=== PATIENT | male | born 1965 | race Two or more races ===

== ENCOUNTER 2024-11-22 15:25 | Emergency (ER) | payer OTHER, MEDICAID ==
[~2024-11-22] VITALS: Ht 167.6 cm; Wt 123.0 kg
[~2024-11-22 15:25] MED LIST: AMLO1TAB23 PO; ASPI-543 PO; ATOR40TA52 PO; CHOL200029 PO; CHOL20007 PO; FURO40TA4 PO; INSUINJ49 SC; METO-158 PO; MIN25T GT
[2024-11-22 15:39] VITALS: TEMP 97.7
[2024-11-22 16:00] VITALS: PULSE 61; RESP 16; O2SAT 95
--- NOTE | 2024-11-22 16:26 | DVH ---
CHEST RADIOGRAPH Indication: near syncope Technique: Single frontal view of the chest was obtained COMPARISON: None FINDINGS: Lines and Tubes: None Lungs: Increased interstitial prominence Pleura: No effusion. No pneumothorax. Cardiomediastinal contours: Cardiomegaly Bones: Unremarkable IMPRESSION: Mild congestion
[2024-11-22 16:29] LABS: Chloride 100 mmol/L (98-107); Potassium 4.2 mmol/L (3.5-5.1); Sodium 138 mmol/L (136-145)
[2024-11-22 16:30] LABS: Anion Gap 10 (5-15); Calcium 9.9 mg/dL (8.7-10.4); Carbon Dioxide 28 mmol/L (20-31)
[2024-11-22 16:35] LABS: BUN/Creatinine Ratio 4.6 (10.0-20.0)
[2024-11-22 16:38] LABS: Blood Urea Nitrogen 35 mg/dL (9-23); Glucose 136 mg/dL (74-106)
[2024-11-22 16:44] LABS: Basophils # (auto) 0 10 ^3/uL (0-0.2); Basophils % (auto) 0.3 % (0.0-2.0); Eosinophils # (auto) 0.2 10 ^3/uL (0-0.8); Eosinophils % (auto) 2.6 % (0.0-7.0); Hematocrit 33.7 % (41.0-53.0); Hemoglobin 11.1 g/dL (13.5-17.5); Lymphocytes # (auto) 1.7 10 ^3/uL (0.4-5.4); Lymphocytes % (auto) 26.7 % (10.0-50.0); Mean Corpuscular Hemoglobin 33.2 pg (28.0-32.0); Mean Corpuscular Hgb Conc. 33.1 g/dL (32.0-36.0); Mean Corpuscular Volume 100.2 fL (80.0-100.0); Monocytes # (auto) 0.8 10 ^3/uL (0-1.3); Monocytes % (auto) 12.5 % (0.0-12.0); Neutrophils # (auto) 3.6 10 ^3/uL (1.6-8.6); Neutrophils % (auto) 57.9 % (37.0-80.0); Nucleated Red Blood Cells % 0.1 %; Platelet Count (auto) 223 10^3/uL (140-450); Red Blood Cells 3.36 10^6/uL (4.5-5.90); Red Cell Distribution Width 18.2 % (11.8-14.3); White Blood Cell 6.2 10^3/uL (4.4-10.8)
--- NOTE | 2024-11-22 17:59 | ED.PDOC ---
HPI (NEURO) HPI Comments 59y M who presents to the ED via EMS for chief complaint of hypotension. Pt states he gets dialysis on , , and fri and states he recently got dialysis done today after a few missed dialysis treatments due to the holiday season and states after his dialysis treatment, he started to have weakness at home and drank a soda and called EMS to the scene. EMS arrived on scene and states pt vitals were checked and noted BP of 85/39 and pt was brought to the ED. Pt now in the ED, otherwise denies chest pain, shortness of breath, dizziness, headache, fever, cough or chills. Pt otherwise denies any other symptoms at this time. Pt is alert and oriented and able to answer all questions. Chief Complaint: Low Blood Pressure Time Seen by MD: 17:54 Primary Care Provider: ROME Montanez Notes: Vocational Nurse Notes Information Source: Patient Mode of Arrival: EMS Brought in by: EMS Past Medical History PAST MEDICAL HISTORY: CKF, DM, ESRD, Gallstones, High Lipids, HTN Family History Family History: Unobtainable Social History Smoker: Non-Smoker Alcohol: Denies ETOH Use Drugs: Denies Drug Use Lives In: Home Constitutional: reports: malaise, weakness; denies: chills, diaphoresis, fatigue, fever, sweats, others EENTM: denies: blurred vision, double vision, ear bleeding, ear discharge, ear drainage, ear pain, ear ringing, eye pain, eye redness, hearing loss, mouth pain, mouth swelling, nasal discharge, nose bleeding, nose congestion, nose pain, photophobia, tearing, throat pain, throat swelling, voice changes, others Respiratory: denies: cough, hemoptysis, orthopnea, SOB at rest, shortness of breath, SOB with excertion, stridor, wheezing, others Cardiovascular: denies: chest pain, dizzy spells, diaphoresis, Dyspnea on exertion, edema, irregular heart beat, left arm pain, lightheadedness, palpitations, PND, syncope, others Gastrointestinal: denies: abdomen distended, abdominal pain, blood streaked bowels, constipated, diarrhea, dysphagia, difficulty swallowing, hematemesis, melena, nausea, poor appetite, poor fluid intake, rectal bleeding, rectal pain, vomiting, others Genitourinary: denies: burning, dysuria, flank pain, frequency, hematuria, incontinence, penile discharge, penile sore, pain, testicle pain, testicle swelling, urgency, others Neurological: denies: dizziness, fainting, headache, left sided numbness, left sided weakness, numbness, paresthesia, pre-existing deficit, right sided numbness, right sided weakness, seizure, speech problems, tingling, tremors, weakness, others Musculoskeletal: denies: back pain, gout, joint pain, joint swelling, muscle pain, muscle stiffness, neck pain, others Integumetry: denies: bruises, change in color, change in hair/nails, dryness, laceration, lesions, lumps, rash, wounds, others Allergic/Immunocompromised: denies: Difficulty Healing, Frequent Infections, Hives, Itching, others Hematologic/Lymphatic: denies: anemia, blood clots, easy bleeding, easy bruising, swollen glands, others Endocrine: denies: excessive hunger, excessive sweating, excessive thirst, excessive urination, flushing, intolerance to cold, intolerance to heat, unexplained weight gain, unexplained weight loss, others Psychiatric: denies: anxiety, bipolar disorder, depression, hopeless, panic disorder, schizophrenia, sleepless, suicidal, others All Other Systems: Reviewed and Negative Physical Exam General Appearance: No Apparent Distress, Normal HEENT: Normal ENT Inspection, Pharynx Normal, TMs Normal Neck: Full Range of Motion, Non-Tender, Normal, Normal Inspection Respiratory: Chest Non-Tender, Lungs Clear, No Accessory Muscle Use, No Respiratory Distress, Normal Breath Sounds Cardiovascular: No Edema, No JVD, No Murmur, No Gallop, Normal Peripheral Pulses, Regular Rate/Rhythm Breast Exam: Deferred Gastrointestinal: No Organomegaly, Non Tender, No Pulsatile Mass, Normal Bowel Sounds, Soft Genitalia: Deferred Pelvic: Deferred Rectal: Deferred Extremities: No calf tenderness, Normal capillary refill, Normal inspection, Normal range of motion, Non-tender, No pedal edema Musculoskeletal : Apperance: Normal Neurologic: Alert, trust accounts supervisor II-XII nml as Tested, No Motor Deficits, Normal Affect, Normal Mood, No Sensory Deficits Cerebellar Function: Normal Reflexes: Normal Skin: Dry, Normal Color, Warm Lymphatic: No Adenopathy Was a procedure done? Was a procedure done?: No Differential Diagnosis (SZ) General Weakness: Anemia, Dehydration, Electrolyte imbalance, Encephalopathy, Hypotension, Vertigo: central, Vertigo: peripheral, Other (sepsis, CHF exacerbation) X-Ray, Labs, Meds, VS Vital Signs Date Time Temp Pulse Resp B/P (MAP) Pulse Ox O2 Delivery O2 Flow Rate FiO2 11/22/24 20:00 84 22 135/73 (93) 100 11/22/24 19:00 61 13 137/66 (89) 94 11/22/24 18:20 59 11/22/24 18:00 59 16 137/66 (89) 94 11/22/24 16:00 61 14 121/55 (77) 95 11/22/24 16:00 61 16 95 Room Air* 0 21 11/22/24 15:40 89/48 (62) 11/22/24 15:39 97.7 61 16 85/39 (54) 98 97.7 11/22/24 15:33 61 11/22/24 15:25 97.7 61 16 89/48 (62) 98 Lab Test 11/22/24 17:43 11/22/24 15:59 Range/Units Troponin I High Sensitivity 37 41 </=54 ng/L White Blood Count 6.2 4.4-10.8 10^3/uL Red Blood Count 3.36 L 4.5-5.90 10^6/uL Hemoglobin 11.1 L 13.5-17.5 g/dL Hematocrit 33.7 L 41.0-53.0 % Mean Corpuscular Volume 100.2 H 80.0-100.0 fL Mean Corpuscular Hemoglobin 33.2 H 28.0-32.0 pg Mean Corpuscular Hemoglobin Concent 33.1 32.0-36.0 g/dL Red Cell Distribution Width 18.2 H 11.8-14.3 % Platelet Count 223 140-450 10^3/uL Mean Platelet Volume 8.4 6.9-10.8 fL Neutrophils (%) (Auto) 57.9 37.0-80.0 % Lymphocytes (%) (Auto) 26.7 10.0-50.0 % Monocytes (%) (Auto) 12.5 H 0.0-12.0 % Eosinophils (%) (Auto) 2.6 0.0-7.0 % Basophils (%) (Auto) 0.3 0.0-2.0 % Neutrophils # (Auto) 3.6 1.6-8.6 10 ^3/uL Lymphocytes # (Auto) 1.7 0.4-5.4 10 ^3/uL Monocytes # (Auto) 0.8 0-1.3 10 ^3/uL Eosinophils # (Auto) 0.2 0-0.8 10 ^3/uL Basophils # (Auto) 0 0-0.2 10 ^3/uL Nucleated Red Blood Cells 0.1 % Sodium Level 138 136-145 mmol/L Potassium Level 4.2 3.5-5.1 mmol/L Chloride Level 100 98-107 mmol/L Carbon Dioxide Level 28 20-31 mmol/L Anion Gap 10 5-15 Blood Urea Nitrogen 35 H 9-23 mg/dL Creatinine 7.67 H 0.700-1.30 mg/dL Glomerular Filtration Rate Calc 8 >90 mL/min BUN/Creatinine Ratio 4.6 L 10.0-20.0 Serum Glucose 136 H 74-106 mg/dL Calcium Level 9.9 8.7-10.4 mg/dL B-Type Natriuretic Peptide 792.43 0-100 pg/mL [place] [id number] Ph: [phone] DIAGNOSTIC IMAGING Diagnostic Imaging Report : [id number] Signed PATIENT: FREDIS DUKE ACCT: [id number] UNIT: [id number] : 1965 LOC: ER ROOM / BED: / AGE / SEX: 59 / M ADM STATUS: REG ER SERVICE 36 ORDERING PHYSICIAN: ÁNGEL RINCON MD PROCEDURE(s): CXRP - CHEST PORTABLE REASON: near syncope ORDER NUMBER(s): [id number], ACCESSION NUMBER(s): [id number] CHEST RADIOGRAPH Indication: near syncope Technique: Single frontal view of the chest was obtained COMPARISON: None FINDINGS: Lines and Tubes: None Lungs: Increased interstitial prominence Pleura: No effusion. No pneumothorax. Cardiomediastinal contours: Cardiomegaly Bones: Unremarkable IMPRESSION: Mild congestion ATED BY: FABIAN DINH MD DICTATED DATE/TIME: 11/22/24 1622 SIGNED BY: FABIAN DINH MD SIGNED DATE/TIME: 11/22/24 1622 CC: Time of 1ST Reevaluation: 18:30 Reevaluation 1ST: Unchanged Patient Education/Counseling: Diagnosis, Treatment Family Education/Counseling: No Family Present Additional Information - I reviewed the following notes from patient's past medical encounters: - The following tests were ordered, and results were reviewed by me: (Labs, X- Ray, EKG): EKG x3, troponin x 3, chest x-ray, CBC, BMP, BNP, - Additional information was gathered from interviewing the following independent Historian: (Family, Other Providers, EMT): EMS - I reviewed and agreed with the following test results read by other provider: (X-ray, CT, US): radiologist - I discussed treatments and results with medical personnel and: (consultants, family): none Departure 1 Departure Time of Disposition: 20:30 (Patient presented with near syncope today and should be admitted. Data: 1. I ordered and reviewed the result of at least 3 l abs including a CBC, BMP, and troponin. 2. I independently interpreted the following tests: EKG which shows a sinus arrhythmia and a chest x-ray which shows vascular congestion.Risk:This patient has a high risk of morbidity due to further diagnostic testing or treatment and may suffer from an acute cardiac, neurologic, or infectious disorder. Rationale: Patient should be admitted to the hospital for further management.) Impression: Primary Impression: Near syncope Additional Impression: Generalized weakness Disposition: 09 ADMITTED INPATIENT Admit to: Med Surg Condition: Serious Critical Care Note Critical Care Time?: No Stability Stability form required: No Heart Score Heart Score: Heart Score Response (Comments) Value History Slightly Suspicious 0 EKG Repolarization Disturb 1 Age 45-64 1 Risk Factors >3 or Hx ASHD 2 Troponin 1-2 x's Normal limit 1 Total 5 I personally scribed for ÁNGEL RINCON MD ([email or web address]) on 11/22/24 at 17:59. Electronically submitted by Rita Pope ([email or web address]). ÁNGEL RINCON MD Nov 22, 2024 17:59
--- NOTE | 2024-11-22 18:19 | ECG ---
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
[2024-11-22 19:45] VITALS: PULSE 61; RESP 13; O2SAT 94
[2024-11-22 20:00] VITALS: BP 160/45; PULSE 63; RESP 16; O2SAT 99
== END 2024-11-22 20:45 | disposition home or self-care (01) ==
LOC: EDBD 15:25 → EDUNIT# 15:25 → ER 15:25
DX: R55 Syncope and collapse (principal); R53.1 Weakness; I95.9 Hypotension, unspecified; E11.22 Type 2 diabetes mellitus with diabetic chronic kidney disease; I12.0 Hypertensive chronic kidney disease with stage 5 chronic kidney disease or end stage renal disease; N18.6 End stage renal disease
CPT/HCPCS: 36415; 71045; 80048; 83880; 84484; 85025; 93005

== ENCOUNTER 2025-04-09 05:15 | Inpatient (IN) | payer OTHER, MEDICAID ==
[2025-04-09] VITALS (14 sets, daily range): BP systolic 115–161; BP diastolic 37–46; PULSE 60–109; RESP 17–22; TEMP 97.9–98.6; O2SAT 94–99
[~2025-04-09] VITALS: Ht 172.7 cm; Wt 129.0 kg
[2025-04-09] MEDS: NITROGLYCERIN 2% OINT 1GM PKG TD ONE (05:30)
--- NOTE | 2025-04-09 05:30 | ED.PDOC ---
History of Present Illness HPI Comments 59-year-old male came to ER via EMS for shortness of breath. Patient is morbidly obese, does have history of hypertension, diabetes, congestive heart failure, end-stage renal disease, on dialysis every Friday and Friday. Patient missed his dialysis session last . Patient coming in today with shortness of breath that started few hours ago progressively worsening. Complaining also of bilateral flank pains and constipation, last bowel movement was 3 days ago. Denies any acute chest pains. Patient was saturating 80% on room air on on scene. Patient was placed on CPAP and brought to the ER for further evaluation. Chief Complaint: Shortness a breath Time Seen by MD: 05:30 Primary Care Provider: ROME Montanez Notes: Trestle Builder Notes Allergies: Coded Allergies: NO KNOWN ALLERGIES (Unverified , 09/03/10) Home Meds Reported Medications Cholecalciferol (VITAMIN D3) 2,000 Unit Tab, 1 TAB PO DAILY, #30 TAB 5 Refills 09/26/15 Atorvastatin Calcium (ATORVASTATIN CALCIUM) 40 Mg Tab, 1 TAB PO DAILY, #90 TAB 1 Refill 09/26/15 Aspirin (Aspir-Low) 81 Mg Tab, 81 MG PO DAILY for 30 Days, MG 09/26/15 Furosemide (Furosemide) 40 Mg Tab, 40 MG PO DAILY for 30 Days 09/26/15 Minoxidil (Loniten) 2.5 Mg Tb, 10 MG GT BID 09/26/15 Metoprolol Tartrate (Metoprolol Tartrate) 50 Mg Tab, 50 MG PO BID for 30 Days, MG 09/26/15 Cholecalciferol (VITAMIN D3) 2,000 Unit Chw, 2000 UNIT PO, CHW 09/25/15 Amlodipine Besylate (Amlodipine Besylate) 10 Mg Tab, 1 TAB PO DAILY, #30 TAB 5 Refills 09/25/15 Insulin Isophane & Reg (Human) (NOVOLIN 70/30 RELION) Relion Inj, 1 SC, INJ 09/25/15 Information Source: Emergency Med Personnel Mode of Arrival: EMS Severity: Moderate Timing: Hours Duration: Since onset Prehospital treatment: C-Pap, Oxygen Past Medical History PAST MEDICAL HISTORY: CHF, DM, ESRD, Gallstones, High Lipids, HTN Surgical History (Other): Dialysis every Friday Family History Family History: Reviewed,noncontributory to illness Social History Smoker: Non-Smoker Alcohol: Denies ETOH Use Drugs: Denies Drug Use Lives In: Home Constitutional: denies: chills, diaphoresis, fatigue, fever, malaise, sweats, weakness, others EENTM: denies: blurred vision, double vision, ear bleeding, ear discharge, ear drainage, ear pain, ear ringing, eye pain, eye redness, hearing loss, mouth pain, mouth swelling, nasal discharge, nose bleeding, nose congestion, nose pain, photophobia, tearing, throat pain, throat swelling, voice changes, others Respiratory: reports: SOB at rest, shortness of breath; denies: cough, hemoptysis, orthopnea, SOB with excertion, stridor, wheezing, others Cardiovascular: reports: chest pain, edema; denies: dizzy spells, diaphoresis, Dyspnea on exertion, irregular heart beat, left arm pain, lightheadedness, palpitations, PND, syncope, others Gastrointestinal: denies: abdomen distended, abdominal pain, blood streaked bowels, constipated, diarrhea, dysphagia, difficulty swallowing, hematemesis, melena, nausea, poor appetite, poor fluid intake, rectal bleeding, rectal pain, vomiting, others Genitourinary: denies: burning, dysuria, flank pain, frequency, hematuria, incontinence, penile discharge, penile sore, pain, testicle pain, testicle swelling, urgency, others Neurological: denies: dizziness, fainting, headache, left sided numbness, left sided weakness, numbness, paresthesia, pre-existing deficit, right sided numbness, right sided weakness, seizure, speech problems, tingling, tremors, weakness, others Musculoskeletal: denies: back pain, gout, joint pain, joint swelling, muscle pain, muscle stiffness, neck pain, others Integumetry: denies: bruises, change in color, change in hair/nails, dryness, laceration, lesions, lumps, rash, wounds, others Allergic/Immunocompromised: denies: Difficulty Healing, Frequent Infections, Hives, Itching, others Hematologic/Lymphatic: denies: anemia, blood clots, easy bleeding, easy bruising, swollen glands, others Endocrine: denies: excessive hunger, excessive sweating, excessive thirst, excessive urination, flushing, intolerance to cold, intolerance to heat, unexplained weight gain, unexplained weight loss, others Psychiatric: denies: anxiety, bipolar disorder, depression, hopeless, panic disorder, schizophrenia, sleepless, suicidal, others Physical Exam General Appearance: No Apparent Distress, Normal HEENT: Normal ENT Inspection, Pharynx Normal, TMs Normal Neck: Full Range of Motion, Non-Tender, Normal, Normal Inspection Respiratory: Chest Non-Tender, Lungs Clear, No Accessory Muscle Use, No Respiratory Distress, Normal Breath Sounds Cardiovascular: No Edema, No JVD, No Murmur, No Gallop, Normal Peripheral Pulses, Regular Rate/Rhythm Breast Exam: Deferred Gastrointestinal: No Organomegaly, Non Tender, No Pulsatile Mass, Normal Bowel Sounds, Soft Genitalia: Deferred Pelvic: Deferred Rectal: Deferred Extremities: No calf tenderness, Normal capillary refill, Normal inspection, Normal range of motion, Non-tender, No pedal edema Musculoskeletal : Apperance: Normal Neurologic: Alert, event promoter II-XII nml as Tested, No Motor Deficits, Normal Affect, Normal Mood, No Sensory Deficits Cerebellar Function: Normal Reflexes: Normal Skin: Dry, Normal Color, Warm Lymphatic: No Adenopathy Was a procedure done? Was a procedure done?: No Differential Dx Considerations may include: Anemia, electrolyte imbalance, hypertension, congestive heart failure, end-stage renal disease, pneumonia, UTI, constipation X-Ray, Labs, Meds, VS Vital Signs Date Time Temp Pulse Resp B/P (MAP) Pulse Ox O2 Delivery O2 Flow Rate FiO2 04/09/25 05:19 72 Time of 1ST Reevaluation: 05:24 Reevaluation 1ST: Unchanged Patient Education/Counseling: Diagnosis, Treatment Family Education/Counseling: No Family Present Departure 1 Departure Time of Disposition: 07:00 Impression: Primary Impression: Respiratory failure with hypoxia Additional Impressions: ESRD on dialysis Fluid overload Disposition: ADMITTED INPATIENT Admit to: Tele Condition: Guarded Discharged With: Self Critical Care Note Critical Care Time?: Yes (35 min-critical care time only) Critical care comment: Shortness a breath Stability Stability form required: No Heart Score Heart Score: Heart Score Response (Comments) Value History Moderate Suspicious 1 EKG Repolarization Disturb 1 Age 45-64 1 Risk Factors >3 or Hx ASHD 2 Troponin Normal limit 0 Total 5 I personally scribed for ARIELLE DÍAZ MD ([email or web address]) on 04/09/25 at 05:30. Electronically submitted by Kalin Ribera ([email or web address]). ARIELLE DÍAZ MD April 09, 2025 05:30
--- NOTE | 2025-04-09 06:10 | ECG ---
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
[2025-04-09 06:21] LABS: Basophils # (auto) 0.1 10 ^3/uL (0-0.2); Basophils % (auto) 0.6 % (0.0-2.0); Eosinophils # (auto) 0.1 10 ^3/uL (0-0.8); Eosinophils % (auto) 1.2 % (0.0-7.0); Hematocrit 32.9 % (41.0-53.0); Hemoglobin 11.3 g/dL (13.5-17.5); Lymphocytes % (auto) 21.3 % (10.0-50.0); Mean Corpuscular Hemoglobin 33.6 pg (28.0-32.0); Mean Corpuscular Hgb Conc. 34.3 g/dL (32.0-36.0); Mean Corpuscular Volume 97.8 fL (80.0-100.0); Monocytes # (auto) 0.6 10 ^3/uL (0-1.3); Monocytes % (auto) 6.7 % (0.0-12.0); Neutrophils # (auto) 6.5 10 ^3/uL (1.6-8.6); Neutrophils % (auto) 70.2 % (37.0-80.0); Nucleated Red Blood Cells % 0.1 %; Platelet Count (auto) 165 10^3/uL (140-450); Red Blood Cells 3.36 10^6/uL (4.5-5.90); Red Cell Distribution Width 16.1 % (11.8-14.3); White Blood Cell 9.3 10^3/uL (4.4-10.8)
--- NOTE | 2025-04-09 06:21 | DVH ---
CHEST RADIOGRAPH Indication: SOB Technique: Single frontal view of the chest was obtained COMPARISON: XY CHEST PORTABLE on DOS: 11/22/24 FINDINGS: Lines and Tubes: None Lungs: Multifocal right lung airspace disease Pleura: No effusion. No pneumothorax. Cardiomediastinal contours: Cardiomegaly Bones: Unremarkable IMPRESSION: Multifocal right lung airspace disease
[2025-04-09 06:29] LABS: INR 1.01 (0.9-1.15); Prothrombin Time 10.7 sec (9.3-11.8)
[2025-04-09 06:38] LABS: Alanine Aminotransferase 10 U/L (7-40); Albumin 4.3 g/dL (3.2-4.8); Anion Gap 14 (5-15); Aspartate Aminotransferase 15 U/L (13-40); BUN/Creatinine Ratio 5.6 (10.0-20.0); Calcium 8.8 mg/dL (8.7-10.4); Total Protein 8.2 g/dL (5.7-8.2)
[2025-04-09 06:39] LABS: Bilirubin, Total 0.4 mg/dL (0.2-1.0)
[2025-04-09 06:58] LABS: Base Excess -5.1 mmol/L (-2.0-3.0)
[2025-04-09 07:06] LABS: Alkaline Phosphatase 215 U/L (46-116); Blood Urea Nitrogen 66 mg/dL (9-23); Chloride 97 mmol/L (98-107); Potassium 6.9 mmol/L (3.5-5.1); Sodium 134 mmol/L (136-145)
[2025-04-09 07:21] LABS: Carbon Dioxide 23 mmol/L (20-31); Glucose 175 mg/dL (74-106)
[2025-04-09] MEDS ORDERED: HYDR50TA47 PO (08:07)
[2025-04-09] MEDS ORDERED: APIX5TAB PO (08:07)
[2025-04-09] MEDS ORDERED: CALC667C PO (08:07)
[2025-04-09] MEDS ORDERED: SACU1TAB7 PO (08:07)
[2025-04-09] MEDS ORDERED: GAB100C PO (08:07)
[2025-04-09] MEDS ORDERED: CARV12.544 PO (08:07)
[2025-04-09] MEDS ORDERED: ISOS10TA2 PO (08:07)
--- NOTE | 2025-04-09 08:14 | DVHHP2 ---
History of Present Illness Reason for Visit: SOB History of Present Illness Crispin Son is a 59-year-old male with past medical history of hypertension, hyperlipidemia, diabetes type 2, CHF, ESRD on HD (//), right eye blindness, left upper arm fistula with a history of clot, cholelithiasis, right BKA, and left toe amputation who presents to the ED with SOB since 11:00 a.m. yesterday. Patient reports that he missed his dialysis on because they were paving the asphalt and they were unable to leave their home. Patient reports that he was trying to go today but he was extremely short of breath which is why he is here today. Patient's Bettina is at the bedside along with his daughter. Patient states that the shortness of breath came about when he was just sitting. Patient also endorses that his abdomen has been bloated and he has not had a bowel movement in 3 days except for today he had watery small amount. Patient denies any chest pain, fever, chills, recent trauma or injury, recent sick contacts, recent ingestion of spoiled food, lightheadedness, weakness, dizziness, wheezing, abdominal pain, nausea, vomiting, or diarrhea. He states that he has a prosthetic leg and uses a front wheel walker along with a wheelchair to get around. Patient also states that he does not use home oxygen however upon examination areli stoner is currently on 4 L nasal cannula was initially on BiPAP however Respiratory was able to wean him down to nasal cannula. Cardiovascular: CHF, HTN, hyperipidemia Renal/: Chronic renal failure Endocrine: Diabetes Past Medical History Right eye blindness Cholelithiasis Left upper arm fistula with history of clot Past Surgical History: Other (Right BKA and left toe amputation) Family History: DM, Other (Dad with ESRD on HD, diabetes, right eye blindness, deafness, and right leg amputation) Smoke: No ALCOHOL: none Lives: with Family Domestic Violence: Neg Review of Systems Respiratory: Shortness of breath Gastrointestinal: Other (Bloating) Allergies: Coded Allergies: NO KNOWN ALLERGIES (Unverified , 09/03/10) Medications Current Medications Medications Dose Ordered Sig/Neto Route Start Time Stop Time Status Last Admin Dose Admin Ondansetron HCl 4 mg Q4HP PRN IV 04/09/25 08:15 UNV Acetaminophen 650 mg Q6HP PRN PO 04/09/25 08:15 UNV Nitroglycerin 0.4 mg Q5MINP PRN SL 04/09/25 08:15 UNV Morphine Sulfate 2 mg Q30M PRN IV 04/09/25 08:15 UNV Aspirin 81 mg DAILY PO 04/09/25 10:00 UNV Furosemide 40 mg DAILY PO 04/09/25 10:00 UNV Metoprolol Tartrate 50 mg BID PO 04/09/25 10:00 UNV Minoxidil 10 mg BID GT 04/09/25 10:00 UNV Patient Own Medication 1 tab DAILY PO 04/09/25 10:00 UNV Patient Own Medication 1 tab DAILY PO 04/09/25 10:00 UNV Patient Own Medication 1 tab DAILY PO 04/09/25 10:00 UNV Albuterol 2.5 mg Q4HWA NEB 04/09/25 10:00 UNV Ipratropium [place] 0.5 mg Q4HWA NEB 04/09/25 10:00 UNV Polyethylene Glycol 17 gm DAILY PO 04/09/25 10:00 UNV Sennosides 8.6 mg HS PO 04/09/25 22:00 UNV Apixaban 5 mg BID PO 04/09/25 10:00 UNV Calcium Acetate 667 mg TID PO 04/09/25 14:00 UNV Carvedilol 12.5 mg BID PO 04/09/25 10:00 UNV Gabapentin 100 mg TID PO 04/09/25 14:00 UNV Isosorbide Dinitrate 10 mg TID PO 04/09/25 14:00 UNV Patient Own Medication 1 tab TID PO 04/09/25 14:00 UNV Patient Own Medication 1 tab BID PO 04/09/25 10:00 UNV Exam Vital Signs Vital Signs Date Time Temp Pulse Resp B/P (MAP) Pulse Ox O2 Delivery O2 Flow Rate FiO2 04/09/25 07:54 97 Nasal Cannula* 4 36 04/09/25 05:49 71 04/09/25 05:49 32 04/09/25 05:45 98.1 142/121 (128) 98.1 General Appearance: Alert, Oriented X3, Cooperative, mild distress HEENT: Atraumatic, PERRLA, EOMI, Mucous membr. moist/pink Respiratory: Normal air movement Cardiovascular: Normal S1, Normal S2, No murmurs Abdominal: Normal bowel sounds, Soft Extremities: Normal pulses, Other (Right BKA) Neuro: Normal speech, Strength at 5/5 X4 ext, Normal tone, Sensation intact Psych/Mental Status: Mental status NL, Mood NL Labs/Xrays Labs Test 04/09/25 07:25 04/09/25 06:50 04/09/25 05:56 Range/Units Troponin I High Sensitivity 244 *H </=54 ng/L Blood Gas Specimen Type Arterial Blood Gas Sample Site Right radial Blood Gas Patient Temperature 37.0 Arterial Blood Date Drawn [id number] Arterial Blood pH 7.394 7.350-7.450 Arterial Blood Partial Pressure CO2 31.6 L 35.0-48.0 mmHg Arterial Blood Partial Pressure O2 68.1 L 83.0-108.0 mmHg Arterial Blood HCO3 18.9 L 21.0-28.0 mmol/L Arterial Blood Oxygen Saturation 90.9 L 94.0-98.0 % Arterial Blood Base Excess -5.1 L -2.0-3.0 mmol/L Arterial Blood Oxyhemoglobin 90.3 L 94.0-98.0 % Arterial Blood Carboxyhemoglobin 0.3 L 0.5-1.5 % Arterial Blood Methemoglobin 0.4 0.0-1.5 % Sameer Test Yes Blood Gas Total Hemoglobin 11.50 L 13.5-17.5 g/dL Blood Gas Modality Mask - bipap FiO2 % 35.0 Blood Gas EPAP 5 Blood Gas IPAP 12 White Blood Count 9.3 4.4-10.8 10^3/uL Red Blood Count 3.36 L 4.5-5.90 10^6/uL Hemoglobin 11.3 L 13.5-17.5 g/dL Hematocrit 32.9 L 41.0-53.0 % Mean Corpuscular Volume 97.8 80.0-100.0 fL Mean Corpuscular Hemoglobin 33.6 H 28.0-32.0 pg Mean Corpuscular Hemoglobin Concent 34.3 32.0-36.0 g/dL Red Cell Distribution Width 16.1 H 11.8-14.3 % Platelet Count 165 140-450 10^3/uL Mean Platelet Volume 9.0 6.9-10.8 fL Neutrophils (%) (Auto) 70.2 37.0-80.0 % Lymphocytes (%) (Auto) 21.3 10.0-50.0 % Monocytes (%) (Auto) 6.7 0.0-12.0 % Eosinophils (%) (Auto) 1.2 0.0-7.0 % Basophils (%) (Auto) 0.6 0.0-2.0 % Neutrophils # (Auto) 6.5 1.6-8.6 10 ^3/uL Lymphocytes # (Auto) 2.0 0.4-5.4 10 ^3/uL Monocytes # (Auto) 0.6 0-1.3 10 ^3/uL Eosinophils # (Auto) 0.1 0-0.8 10 ^3/uL Basophils # (Auto) 0.1 0-0.2 10 ^3/uL Nucleated Red Blood Cells 0.1 % Prothrombin Time 10.7 9.3-11.8 sec Prothrombin Time INR 1.01 0.9-1.15 Activated Partial Thromboplast Time 31.0 24.5-34.5 SEC Sodium Level 134 L 136-145 mmol/L Potassium Level 6.9 *H 3.5-5.1 mmol/L Chloride Level 97 L 98-107 mmol/L Carbon Dioxide Level 23 20-31 mmol/L Anion Gap 14 5-15 Blood Urea Nitrogen 66 H 9-23 mg/dL Creatinine 11.69 *H 0.700-1.30 mg/dL Glomerular Filtration Rate Calc 5 >90 mL/min BUN/Creatinine Ratio 5.6 L 10.0-20.0 Serum Glucose 175 H 74-106 mg/dL Calcium Level 8.8 8.7-10.4 mg/dL Total Bilirubin 0.4 0.2-1.0 mg/dL Aspartate Amino Transferase (AST) 15 13-40 U/L Alanine Aminotransferase (ALT) 10 7-40 U/L Alkaline Phosphatase 215 H 46-116 U/L B-Type Natriuretic Peptide 2433.71 0-100 pg/mL Total Protein 8.2 5.7-8.2 g/dL Albumin 4.3 3.2-4.8 g/dL EXAM: XR Chest, 1 View CLINICAL INDICATION: bloating TECHNIQUE: Frontal view of the chest. COMPARISON: None FINDINGS: LUNGS AND PLEURAL SPACES: Unremarkable. No consolidation. No pneumothorax. HEART: Unremarkable. No cardiomegaly. MEDIASTINUM: Unremarkable. Normal mediastinal contour. BONES/JOINTS: Unremarkable. No acute fracture. UPPER ABDOMEN: Fecal retention in the colon consistent with constipation. OTHER FINDINGS: . IMPRESSION: Fecal retention in the colon consistent with constipation. CHEST RADIOGRAPH Indication: SOB Technique: Single frontal view of the chest was obtained COMPARISON: XY CHEST PORTABLE on DOS: 11/22/24 FINDINGS: Lines and Tubes: None Lungs: Multifocal right lung airspace disease Pleura: No effusion. No pneumothorax. Cardiomediastinal contours: Cardiomegaly Bones: Unremarkable IMPRESSION: Multifocal right lung airspace disease Assessment/Plan Assessment/Plan Assessment Acute hypoxic respiratory failure Acute on chronic CHF exacerbation Constipation Anemia Probable pneumonia ESRD on HD (T//S) Morbid obesity History of hypertension History of hyperlipidemia History of diabetes type 2 History of CHF History of right eye blindness History of cholelithiasis History of left upper arm fistula with DVT History of right BKA History of left toe amputation Plan Admit to med surge Nitro given ED IV antibiotics-ceftriaxone ABG BNP Duo nebs KUB Trend troponins Chest x-ray PT/PTT EKG noted Antiemetics Pain management Supportive oxygen Bowel regimen Strict I&Os Daily weights Last echo on 09/25/2015 EF 70-75% Echo ordered Home medications reconciled DVT prophylaxis-patient on Eliquis PUD prophylaxis-PPIs Discussed plan of care with patient, patient's spouse, patient's daughter, and nurse Counseled patient on lifestyle modifications, diet, and exercise Nephro consult Cardio consult Plan discussed with: Patient, Spouse, Daughter My Orders Orders - BG FUENTES INCUBATOR TENDER Procedure Category Date Status Time Admit ADMIT 04/09/25 Transmitted 08:05 Allergies INOCENCIA 04/09/25 In Process 08:05 Code Status CODE 04/09/25 Transmitted 08:05 Renal DIET 04/09/25 Transmitted Standard(2gna,3gk,Lopho) Breakfast Oxygen Per Hour RT 04/09/25 Transmitted 08:05 Ondansetron Hcl PHA 04/09/25 Logged (Zofran) 08:15 Complete Blood Count LAB 04/10/25 Verified 04:00 Comprehensive LAB 04/10/25 Verified Metabolic Panel 04:00 Acetaminophen Tablet PHA 04/09/25 Logged (Tylenol Tablet) 08:15 Nitroglycerin PHA 04/09/25 Logged Sublingual (Ntrostat 08:15 Morphine Sulfate PHA 04/09/25 Logged Injection 08:15 Stat Ekg For Chest INOCENCIA 04/09/25 In Process Pain 08:05 Notify Of Changes INOCENCIA 04/09/25 In Process From Base 08:05 House Visitor For [facility] 04/09/25 In Process 24 Hours 08:05 Emergency Dysrhythmia INOCENCIA 04/09/25 In Process Protocol 08:05 Rhythm Strips Once INOCENCIA 04/09/25 In Process Every Shift 08:05 Oxygen By Nasal RT 04/09/25 Transmitted Cannula 08:05 *[facility] CONS 04/09/25 Transmitted -[place] 08:05 Aspirin Enteric PHA 04/09/25 Logged Coated Tablet 10:00 Furosemide Tablet PHA 04/09/25 Logged (Lasix Tablet) 10:00 Metoprolol Tartrate PHA 04/09/25 Logged Tablet (Lopressor Ta 10:00 Minoxidil Tablet PHA 04/09/25 Logged (Loniten Tablet) 10:00 (Nf) Amlodipine PHA 04/09/25 Logged Besylate 10:00 (Nf) Atorvastatin PHA 04/09/25 Logged Calcium 10:00 (Nf) Cholecalciferol PHA 04/09/25 Logged (Vitamin D3) 10:00 Albuterol Medneb PHA 04/09/25 Logged (Ventolin Medneb) 10:00 Ipratropium Medneb PHA 04/09/25 Logged (Atrovent Medneb) 10:00 Polyethylene Glycol PHA 04/09/25 Logged 17g Powder (Miralax 10:00 Senna Pod Tablet PHA 04/09/25 Logged (Senokot Tablet) 22:00 Apixaban (Eliquis) PHA 04/09/25 Logged 10:00 Calcium Acetate PHA 04/09/25 Logged Capsule (Phoslo 14:00 Carvedilol Tablet PHA 04/09/25 Logged (Coreg Tablet) 10:00 Gabapentin Capsule PHA 04/09/25 Logged (Neurontin Capsule) 14:00 Isosorbide Dinitrate PHA 04/09/25 Logged Tablet (Isordil Tab 14:00 (Nf) Hydralazine Hcl PHA 04/09/25 Logged 14:00 (NF) PHA 04/09/25 Logged Sacubitril-Valsartan 10:00 Hemoglobin A1c LAB 04/09/25 Transmitted 08:09 Glucose Blood PHA 04/09/25 Transmitted (Accu-Chek Comfort 11:30 Mild Sliding Scale PHA 04/09/25 Transmitted 11:30 Dextrose 50% Syringe PHA 04/09/25 Transmitted 08:15 Date of Service: April 09, 2025 Billing Provider: BG FUENTES Common Visit Codes: [id number] INP/OBS CARE (HIGH) BG FUENTES April 09, 2025 08:14
[2025-04-09] MEDS ORDERED: MORPHINE SULFATE INJ 2 MG/ml SYRG IV PRN (08:15)
[2025-04-09] MEDS ORDERED: DEXTROSE (50%) 50ML SYRG IV PRN (08:15)
[2025-04-09] MEDS ORDERED: ACETAMINOPHEN 325 MG TAB PO PRN (08:15)
[2025-04-09] MEDS ORDERED: NITROGLYCERIN 0.4 MG SL TAB SL PRN (08:15)
--- NOTE | 2025-04-09 08:48 | DVH ---
EXAM: XR Chest, 1 View CLINICAL INDICATION: bloating TECHNIQUE: Frontal view of the chest. COMPARISON: None FINDINGS: LUNGS AND PLEURAL SPACES: Unremarkable. No consolidation. No pneumothorax. HEART: Unremarkable. No cardiomegaly. MEDIASTINUM: Unremarkable. Normal mediastinal contour. BONES/JOINTS: Unremarkable. No acute fracture. UPPER ABDOMEN: Fecal retention in the colon consistent with constipation. OTHER FINDINGS: . IMPRESSION: Fecal retention in the colon consistent with constipation.
[2025-04-09] MEDS ORDERED: LORazepam 2MG/ML-1ML VIAL IV ONE (09:00)
[2025-04-09] MEDS: cefTRIAXone 1GM/50ML D5W 50 ML IV SCH (09:04)
[2025-04-09] MEDS: POLYETHYLENE GLYCOL 17 GM PWDR PO SCH (09:04)
[2025-04-09] MEDS: ASPirin-EC 81 mg tab PO SCH (09:07)
[2025-04-09] MEDS: MORPHINE SULFATE INJ 2 MG/ml SYRG IV ONE (09:07)
[2025-04-09] MEDS: hydrALAZINE HCL 25 MG TAB PO SCH (09:07)
[2025-04-09] MEDS: FUROSEMIDE 40 MG TAB PO SCH (09:08)
[2025-04-09] MEDS: ONDANSETRON HCL 4 MG/2 ML VIAL IV PRN (09:08)
[2025-04-09] MEDS: APIXABAN 5 MG TAB PO SCH (09:08)
[2025-04-09] MEDS: CARVEDILOL 12.5 MG TAB PO SCH (09:09)
[2025-04-09] MEDS: METOPROLOL TARTRATE 50 MG TAB PO SCH (09:09)
[2025-04-09] MEDS: CHOLECALCIFEROL (VITD3) 1,000UNIT=25mCg TAB PO SCH (09:20)
[2025-04-09] MEDS: amLODIPine BESYLATE 5 MG TAB PO SCH (09:21)
[2025-04-09] MEDS: ALBUTEROL SULF 2.5 MG/0.5ML(0.5%) NEB SOLN NEB SCH (09:45)
[2025-04-09] MEDS: IPRATROPIUM BROM 0.5 MG/2.5ML INH SOL NEB SCH (09:45)
[2025-04-09] MEDS: SODIUM CHL 0.9% 1000 ML BAG XX ONE (10:00)
[2025-04-09] MEDS: ACCU-CHEK COMFORT CURVE STRIP VI SCH (11:30)
[2025-04-09] MEDS: InsuLIN REG 1unit/0.01ml Soln (100units/ml) SC SCH (11:30)
--- NOTE | 2025-04-09 13:36 | DVHINCON2 ---
Date of service: April 09, 2025 Referring Physician sarah Reason for Consultation esrd History of Present Illness 59 years old male with past medical history of dyslipidemia hypertension, diabetes, Congestive heart failure, ESRD on dialysis, right eye blindness, right BKA, toe amputation, presented with shortness of breath that started yesterday,, patient says he missed dialysis on because he was unable to leave his home as they were paving the asphalt and transportation could not come he denies any other complaints Past Medical History As per HPI Past Surgical History As per HPI Allergies: Coded Allergies: NO KNOWN ALLERGIES (Unverified , 09/03/10) Home Meds Reported Medications Calcium Acetate (Phosphate Bin (Calcium Acetate) 667 Mg Cap, 3 CAP PO TID 04/09/25 Hydralazine Hcl (Hydralazine Hcl) 50 Mg Tab, 1 TAB PO TID 04/09/25 Carvedilol (Carvedilol) 12.5 Mg Tab, 1 TAB PO BID 04/09/25 Gabapentin (Gabapentin) 100 Mg Cap, CAP PO 04/09/25 Apixaban Base (ELIQUIS) 5 Mg Tab, 1 TAB PO BID 04/09/25 Sacubitril-Valsartan (Entresto 49-51 mg) 1 Tab Tab, 1 TAB PO BID 04/09/25 Isosorbide Dinitrate (Isosorbide Dinitrate) 10 Mg Tab, 1 TAB PO TID 04/09/25 Cholecalciferol (VITAMIN D3) 2,000 Unit Tab, 1 TAB PO DAILY, #30 TAB 5 Refills 09/26/15 Atorvastatin Calcium (ATORVASTATIN CALCIUM) 40 Mg Tab, 1 TAB PO DAILY, #90 TAB 1 Refill 09/26/15 Aspirin (Aspir-Low) 81 Mg Tab, 81 MG PO DAILY for 30 Days, MG 09/26/15 Furosemide (Furosemide) 40 Mg Tab, 40 MG PO DAILY for 30 Days 09/26/15 Minoxidil (Loniten) 2.5 Mg Tb, 10 MG GT BID 09/26/15 Metoprolol Tartrate (Metoprolol Tartrate) 50 Mg Tab, 50 MG PO BID for 30 Days, MG 09/26/15 Cholecalciferol (VITAMIN D3) 2,000 Unit Chw, 2000 UNIT PO, CHW 09/25/15 Amlodipine Besylate (Amlodipine Besylate) 10 Mg Tab, 1 TAB PO DAILY, #30 TAB 5 Refills 09/25/15 Insulin Isophane & Reg (Human) (NOVOLIN 70/30 RELION) Relion Inj, 1 SC, INJ 09/25/15 Current Medications Current Medications Medications (Trade) Dose Ordered Sig/Neto Route PRN Reason Start Time Stop Time Status Last Admin Ondansetron HCl (Zofran) 4 mg Q4HP PRN IV NAUSEA / VOMITING 04/09/25 08:15 04/09/25 09:08 Acetaminophen (Tylenol Tablet) 650 mg Q6HP PRN PO PAIN SCALE 1-3 OR TEMP>100.4 04/09/25 08:15 Nitroglycerin (Ntrostat Sublingual) 0.4 mg Q5MINP PRN SL FOR CHEST PAIN 04/09/25 08:15 Morphine Sulfate 2 mg Q30M PRN IV FOR CHEST PAIN 04/09/25 08:15 Aspirin (Ecotrin Enteric Coated Tablet) 81 mg DAILY PO 04/09/25 10:00 04/09/25 09:07 Furosemide (Lasix Tablet) 40 mg DAILY PO 04/09/25 10:00 04/09/25 09:08 Metoprolol Tartrate (Lopressor Tablet) 50 mg BID PO 04/09/25 10:00 04/09/25 09:09 Minoxidil (Loniten Tablet) 10 mg BID GT 04/09/25 10:00 Amlodipine Besylate (Norvasc Tablet) 10 mg DAILY PO 04/09/25 10:00 04/09/25 09:21 Atorvastatin Calcium (Lipitor) 40 mg HS PO 04/09/25 22:00 Cholecalciferol (Vitamin D3 Tablet) 2,000 unit DAILY PO 04/09/25 10:00 04/09/25 09:20 Albuterol (Ventolin Medneb) 2.5 mg Q4HWA NEB 04/09/25 10:00 04/09/25 09:45 Ipratropium [place] (Atrovent Medneb) 0.5 mg Q4HWA NEB 04/09/25 10:00 04/09/25 09:45 Polyethylene Glycol (Miralax 17GM Powder) 17 gm DAILY PO 04/09/25 10:00 04/09/25 09:04 Sennosides (Senokot Tablet) 8.6 mg HS PO 04/09/25 22:00 Apixaban (Eliquis) 5 mg BID PO 04/09/25 10:00 04/09/25 09:08 Calcium Acetate (Phoslo Capsule) 667 mg TID PO 04/09/25 14:00 Carvedilol (Coreg Tablet) 12.5 mg BID PO 04/09/25 10:00 04/09/25 09:09 Gabapentin (Neurontin Capsule) 100 mg TID PO 04/09/25 14:00 Isosorbide Dinitrate (Isordil Tablet) 10 mg TID PO 04/09/25 14:00 Hydralazine HCl (Apresoline Tablet) 50 mg TID PO 04/09/25 08:42 04/09/25 09:07 Patient Own Medication 1 tab BID PO 04/09/25 10:00 Diagnostic Test (Pha) (Accu-Chek Comfort Curve T) 1 strip ACHS 04/09/25 11:30 Insulin Human Regular (InsuLIN R) ACHS SC 04/09/25 11:30 Dextrose 50 ml UD PRN IV Blood Sugar LESS THAN 60 04/09/25 08:15 Ceftriaxone Sodium 50 ml @ 100 mls/hr DAILY@09 IV 04/09/25 08:15 04/09/25 09:04 Family History: Family history: Diabetes mellitus Review of Systems As per HPI H&P Exam Vital Signs/I&O Vital Sign Date Time Temp Pulse Resp B/P (MAP) Pulse Ox O2 Delivery O2 Flow Rate FiO2 04/09/25 12:00 94 Nasal Cannula* 2 28 04/09/25 11:31 83 22 161/37 04/09/25 05:45 98.1 98.1 Physical Exam General-not in any distress HEENT-normocephalic, no icterus, no pallor, neck supple Respiratory-fair air entry bilateral, positive rales [id number] heard, no murmurs appreciated Abdominal-soft, nontender, nondistended Musculoskeletal-positive pedal edema positive BKA Genitourinary-deferred Neuro-awake alert oriented x3, Psychiatric-not agitated, cooperative, Labs/Diagnostic Data Labs/Diagnostic Data Laboratory Tests Test 04/09/25 12:41 04/09/25 10:28 04/09/25 07:25 04/09/25 06:50 Range/Units POC Glucose 117 H 70-106 mg/dl Troponin I High Sensitivity 626 *H 244 *H </=54 ng/L Blood Gas Specimen Type Arterial Blood Gas Sample Site Right radial Blood Gas Patient Temperature 37.0 Arterial Blood Date Drawn [id number] Arterial Blood pH 7.394 7.350-7.450 Arterial Blood Partial Pressure CO2 31.6 L 35.0-48.0 mmHg Arterial Blood Partial Pressure O2 68.1 L 83.0-108.0 mmHg Arterial Blood HCO3 18.9 L 21.0-28.0 mmol/L Arterial Blood Oxygen Saturation 90.9 L 94.0-98.0 % Arterial Blood Base Excess -5.1 L -2.0-3.0 mmol/L Arterial Blood Oxyhemoglobin 90.3 L 94.0-98.0 % Arterial Blood Carboxyhemoglobin 0.3 L 0.5-1.5 % Arterial Blood Methemoglobin 0.4 0.0-1.5 % Sameer Test Yes Blood Gas Total Hemoglobin 11.50 L 13.5-17.5 g/dL Blood Gas Modality Mask - bipap FiO2 % 35.0 Blood Gas EPAP 5 Blood Gas IPAP 12 Test 04/09/25 05:56 Range/Units White Blood Count 9.3 4.4-10.8 10^3/uL Red Blood Count 3.36 L 4.5-5.90 10^6/uL Hemoglobin 11.3 L 13.5-17.5 g/dL Hematocrit 32.9 L 41.0-53.0 % Mean Corpuscular Volume 97.8 80.0-100.0 fL Mean Corpuscular Hemoglobin 33.6 H 28.0-32.0 pg Mean Corpuscular Hemoglobin Concent 34.3 32.0-36.0 g/dL Red Cell Distribution Width 16.1 H 11.8-14.3 % Platelet Count 165 140-450 10^3/uL Mean Platelet Volume 9.0 6.9-10.8 fL Neutrophils (%) (Auto) 70.2 37.0-80.0 % Lymphocytes (%) (Auto) 21.3 10.0-50.0 % Monocytes (%) (Auto) 6.7 0.0-12.0 % Eosinophils (%) (Auto) 1.2 0.0-7.0 % Basophils (%) (Auto) 0.6 0.0-2.0 % Neutrophils # (Auto) 6.5 1.6-8.6 10 ^3/uL Lymphocytes # (Auto) 2.0 0.4-5.4 10 ^3/uL Monocytes # (Auto) 0.6 0-1.3 10 ^3/uL Eosinophils # (Auto) 0.1 0-0.8 10 ^3/uL Basophils # (Auto) 0.1 0-0.2 10 ^3/uL Nucleated Red Blood Cells 0.1 % Prothrombin Time 10.7 9.3-11.8 sec Prothrombin Time INR 1.01 0.9-1.15 Activated Partial Thromboplast Time 31.0 24.5-34.5 SEC Sodium Level 134 L 136-145 mmol/L Potassium Level 6.9 *H 3.5-5.1 mmol/L Chloride Level 97 L 98-107 mmol/L Carbon Dioxide Level 23 20-31 mmol/L Anion Gap 14 5-15 Blood Urea Nitrogen 66 H 9-23 mg/dL Creatinine 11.69 *H 0.700-1.30 mg/dL Glomerular Filtration Rate Calc 5 >90 mL/min BUN/Creatinine Ratio 5.6 L 10.0-20.0 Serum Glucose 175 H 74-106 mg/dL Hemoglobin A1c 8.0 H <5.7 % A1C Calcium Level 8.8 8.7-10.4 mg/dL Total Bilirubin 0.4 0.2-1.0 mg/dL Aspartate Amino Transferase (AST) 15 13-40 U/L Alanine Aminotransferase (ALT) 10 7-40 U/L Alkaline Phosphatase 215 H 46-116 U/L Troponin I High Sensitivity 71 *H </=54 ng/L B-Type Natriuretic Peptide 2433.71 0-100 pg/mL Total Protein 8.2 5.7-8.2 g/dL Albumin 4.3 3.2-4.8 g/dL Assessment ESRD on dialysis Hyperkalemia missed dialysis Acute hypoxic respiratory failure Recommendations Arranged emergent dialysis today We will consider dialysis tomorrow as well if he is still here Plan discussed with: Patient LUCILA MENDEZ MD April 09, 2025 13:36
[2025-04-09] MEDS: ISOSORBIDE DINITRATE 10 MG TAB PO SCH (14:00)
[2025-04-09] MEDS: CALCIUM ACETATE 667 MG CAP PO SCH (14:00)
[2025-04-09 14:06] LABS: Chloride 101 mmol/L (98-107); Sodium 136 mmol/L (136-145)
[2025-04-09 14:07] LABS: Anion Gap 15 (5-15)
[2025-04-09 14:08] LABS: Calcium 9.2 mg/dL (8.7-10.4)
[2025-04-09 14:12] LABS: BUN/Creatinine Ratio 6.7 (10.0-20.0)
[2025-04-09 14:14] LABS: Carbon Dioxide 20 mmol/L (20-31)
[2025-04-09 14:15] LABS: Glucose 159 mg/dL (74-106); Potassium 6.9 mmol/L (3.5-5.1)
[2025-04-09 14:16] LABS: Blood Urea Nitrogen 81 mg/dL (9-23)
[2025-04-09] MEDS: MINOXIDIL 2.5 MG TAB GT SCH (15:02)
--- NOTE | 2025-04-09 15:24 | DVHPN2 ---
Subjective 59-year-old male with a history of end-stage renal disease on hemodialysis, hypertension, type 2 diabetes, congestive heart failure comes here with a chief complaint of back pain He had pain for 2 days located in the lower back on both sides He was also found to have fluid overload because he missed his dialysis His potassium was elevated at 6.9 He just had a dialysis this morning and we are waiting for a repeat potassium level now His BNP was 2433 Changes from previous H/P or p: Changes Respiratory: Shortness of breath Gastrointestinal: Other (Bloating) Objective Vitals Vital Signs Date Time Temp Pulse Resp B/P (MAP) Pulse Ox O2 Delivery O2 Flow Rate FiO2 04/09/25 13:58 97 Nasal Cannula* 4 36 04/09/25 13:00 98.3 60 17 147/46 (79) 98.3 General Appearance: Alert, Oriented X3, Cooperative, No acute distress Lungs: Clear to auscultation, Normal air movement Cardiovascular: Regular rate, Normal S1, Normal S2 Abdomen: Normal bowel sounds, Soft, No tenderness Extremities: No edema Medications Current Medications Medications Dose Ordered Sig/Neto Route Start Time Stop Time Status Last Admin Dose Admin Ondansetron HCl 4 mg Q4HP PRN IV 04/09/25 08:15 04/09/25 09:08 4 MG Acetaminophen 650 mg Q6HP PRN PO 04/09/25 08:15 Nitroglycerin 0.4 mg Q5MINP PRN SL 04/09/25 08:15 Morphine Sulfate 2 mg Q30M PRN IV 04/09/25 08:15 Aspirin 81 mg DAILY PO 04/09/25 10:00 04/09/25 09:07 81 MG Furosemide 40 mg DAILY PO 04/09/25 10:00 04/09/25 09:08 40 MG Metoprolol Tartrate 50 mg BID PO 04/09/25 10:00 04/09/25 09:09 50 MG Minoxidil 10 mg BID GT 04/09/25 10:00 Amlodipine Besylate 10 mg DAILY PO 04/09/25 10:00 04/09/25 09:21 10 MG Atorvastatin Calcium 40 mg HS PO 04/09/25 22:00 Cholecalciferol 2,000 unit DAILY PO 04/09/25 10:00 04/09/25 09:20 2,000 UNIT Albuterol 2.5 mg Q4HWA NEB 04/09/25 10:00 04/09/25 09:45 2.5 MG Ipratropium [place] 0.5 mg Q4HWA NEB 04/09/25 10:00 04/09/25 09:45 0.5 MG Polyethylene Glycol 17 gm DAILY PO 04/09/25 10:00 04/09/25 09:04 17 GM Sennosides 8.6 mg HS PO 04/09/25 22:00 Apixaban 5 mg BID PO 04/09/25 10:00 04/09/25 09:08 5 MG Calcium Acetate 667 mg TID PO 04/09/25 14:00 Carvedilol 12.5 mg BID PO 04/09/25 10:00 04/09/25 09:09 12.5 MG Gabapentin 100 mg TID PO 04/09/25 14:00 Isosorbide Dinitrate 10 mg TID PO 04/09/25 14:00 Hydralazine HCl 50 mg TID PO 04/09/25 08:42 04/09/25 09:07 50 MG Patient Own Medication 1 tab BID PO 04/09/25 10:00 Diagnostic Test (Pha) 1 strip ACHS 04/09/25 11:30 04/09/25 11:30 1 STRIP Insulin Human Regular ACHS SC 04/09/25 11:30 Dextrose 50 ml UD PRN IV 04/09/25 08:15 Ceftriaxone Sodium 50 ml @ 100 mls/hr DAILY@09 IV 04/09/25 08:15 04/09/25 09:04 100 MLS/HR Laboratory Results Laboratory Tests 04/09/25 05:56 04/09/25 10:28 Chemistry Test 04/09/25 05:56 04/09/25 10:28 Albumin 4.3 g/dL (3.2-4.8) Calcium Level 8.8 mg/dL (8.7-10.4) 9.2 mg/dL (8.7-10.4) Total Protein 8.2 g/dL (5.7-8.2) Coagulation Test 04/09/25 05:56 Prothrombin Time 10.7 sec (9.3-11.8) Prothrombin Time INR 1.01 (0.9-1.15) Activated Partial Thromboplast Time 31.0 SEC (24.5-34.5) Cardiac Markers Test 04/09/25 05:56 B-Type Natriuretic Peptide 2433.71 pg/mL (0-100) LFT Test 04/09/25 05:56 Alanine Aminotransferase (ALT) 10 U/L (7-40) Alkaline Phosphatase 215 U/L (46-116) H Aspartate Amino Transferase (AST) 15 U/L (13-40) Total Bilirubin 0.4 mg/dL (0.2-1.0) HgA1c, TSH Test 04/09/25 05:56 Hemoglobin A1c 8.0 % A1C (<5.7) H Blood Gas Results Test 04/09/25 06:50 Arterial Blood pH 7.394 (7.350-7.450) FiO2 % 35.0 Assessment/Plan Assessment/Plan Acute hypoxic respiratory failure Acute on chronic CHF exacerbation Pulmonary edema Constipation Chronic Anemia of chronic kidney disease End-stage renal disease Morbid obesity Hypertension Type 2 diabetes Hypertension Low back pain Hyperkalemia NSTEMI type 2 due to fluid retention and hypoxia Plan X-ray of the lumbar spine [place] p.r.n[facility] for the pain Hemodialysis was already done Repeat a potassium level in 1 hour Nephrology consult Cardiology consult IV antibiotics Rocephin Eliquis Aspirin Lipitor Coreg Monitor closely Full code Discussed with the family at the bedside Plan discussed with: Patient My Orders Orders - PAULO RADFORD MD Procedure Category Date Status Time Basic Metabolic Panel LAB 04/09/25 Logged 16:00 Hydrocodone-Acet PHA 04/09/25 Verified 5/325mg Tab ([place] 15:30 Lumbar Spine 3 View XY 04/09/25 Verified 15:19 Date of Service: April 09, 2025 Billing Provider: PAULO RADFORD MD Common Visit Codes: NOT BILLABLE PAULO RADFORD MD April 09, 2025 15:24
[2025-04-09] MEDS: GABAPENTIN 100 MG CAP PO SCH (15:49)
[2025-04-09] MEDS: HYDROcodone-ACET 5/325MG TAB PO PRN (15:52)
--- NOTE | 2025-04-09 17:31 | DVH ---
CT LS SPINE WO CONTRAST Date: 04/09/2025 04:02 PM History: lower back pain Comparison: None TECHNIQUE: Multiple axial CT images of the lumbosacral spine were obtained using bone algorithm. Axial and coron al reformatting was done. Bone and soft tissue windows were reviewed. Radiation Dose Information: CT Dose: CTDI volume is 38.94 mGy. Dose-length product is 1271.93 mGy*cm FINDINGS: No CT evidence of definite acute fracture, spinal dislocation, or significant appearing acute subluxa tion is seen. The visualized paraspinal soft tissues are grossly unremarkable. T12-L1 There is no evidence of central spinal canal or neuroforaminal stenosis. L1-L2 There is no evidence of central spinal canal or neuroforaminal stenosis. L2-L3 There is no evidence of central spinal canal or neuroforaminal stenosis. L3-L4 prominent right paracentral bulging involving right neural foramen correlate clinically. L4-L5 There is no evidence of central spinal canal or neuroforaminal stenosis. L5-S1 There is no evidence of central spinal canal or neuroforaminal stenosis. IMPRESSION: 1. No definite CT evidence of acute fracture or dislocation of the bony lumbar spine. 2. Prominent right paracentral bulging disc involving the right neural foramen at L 3- 4. 3. All CT scans at this medical facility are performed using dose modulation techniques as appropriate to a performed exam including the following: Automated exposure control was utilized; adjustment of t he MA and/or KV according to patient size; and use of iterative reconstruction technique.
[2025-04-09 17:44] LABS: Chloride 99 mmol/L (98-107); Sodium 138 mmol/L (136-145)
[2025-04-09 17:45] LABS: Anion Gap 12 (5-15); Carbon Dioxide 27 mmol/L (20-31)
[2025-04-09 17:47] LABS: Calcium 8.7 mg/dL (8.7-10.4)
[2025-04-09 17:50] LABS: BUN/Creatinine Ratio 5.2 (10.0-20.0)
[2025-04-09 17:53] LABS: Blood Urea Nitrogen 47 mg/dL (9-23); Glucose 139 mg/dL (74-106)
--- NOTE | 2025-04-09 20:38 | DVHSR ---
APPROVED REPORT EXAM: LIMITED Two-dimensional and M-mode echocardiogram with Doppler and color Doppler. Blood Pressure: 161/37 mmHg INDICATION SOB RISK FACTORS Obesity: Height: 5' 8", Weight: 350 DIMENSIONS LVDd6.1 (3.8-5.7cm)LA (2D)4.6 (1.9-4.0cm)Aortic Root3.5 (2.0-3.7cm) LVDs5.6 (2.5-4.0cm)LA (MM) (1.9-4.0cm)Aortic Cusp Exc1.9 (1.5-2.0cm) EF (%) 25.0 (55-70%)Rt. Atrium5.1 (1.9-4.0cm)Asc. Aorta cm IVSd1.2 (0.7-1.1cm)RV (D) (1.8-2.4cm) PWd1.2 (0.7-1.1cm) Mitral Valve MitralMitral Stenosis E wave1.30m/sMV Mean GR.mmHg A wave0.80m/sMV Peak GR.mmHg E/A ratio1.62D MVAcm2 Aortic Valve Aortic ValveAortic Stenosis V10.90m/Hailey Mean GR.6mmHg V21.70m/Hailey Peak GR.12mmHg LVOT Diameter2.2 (1.8-2.4cm)Doppler AVA2.01cm2 Pulmonic Valve V20.80m/s Tricuspid Valve TR Velocity2.80m/s [id number] Other Information Quality : Technically LimitedRhythm : Technically limited study due to body habitus. Conclusion Technically a good study, atrial fibrillation. Bi-atrail enlargement. LV enlargement. Aortic root enlargement. Valves are normal. LVEF is diminished at 25% with normal RV function. Doppler is normal. No PE, masses or vegetations
[2025-04-09] MEDS: SENNA 8.6 MG TAB PO SCH (22:00)
[2025-04-09] MEDS: ATORVASTATIN 20 MG TAB PO SCH (22:04)
--- NOTE | 2025-04-09 22:49 | DVHINCON2 ---
Date of service: April 09, 2025 Referring Physician Th Reason for Consultation Elevate troponin History of Present Illness This is a 59 year old male with a PMH of hypertension, diabetes, congestive heart failure, end-stage renal disease, on dialysis every Friday and Friday who presented to the ED with complaints of SOB. Patient missed his dialysis session last . Patient also complains of bilateral flank pains and constipation, last bowel movement was 3 days ago. 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 Troponin 71 > 244 > 626. Chest x-ray shows multifocal right lung airspace disease. Patient was admitted to the hospital. I am asked to consult on this patient. Family History: Family history: Diabetes mellitus Allergies: Coded Allergies: NO KNOWN ALLERGIES (Unverified , 09/03/10) Home Meds Reported Medications Calcium Acetate (Phosphate Bin (Calcium Acetate) 667 Mg Cap, 3 CAP PO TID 04/09/25 Hydralazine Hcl (Hydralazine Hcl) 50 Mg Tab, 1 TAB PO TID 04/09/25 Carvedilol (Carvedilol) 12.5 Mg Tab, 1 TAB PO BID 04/09/25 Gabapentin (Gabapentin) 100 Mg Cap, CAP PO 04/09/25 Apixaban Base (ELIQUIS) 5 Mg Tab, 1 TAB PO BID 04/09/25 Sacubitril-Valsartan (Entresto 49-51 mg) 1 Tab Tab, 1 TAB PO BID 04/09/25 Isosorbide Dinitrate (Isosorbide Dinitrate) 10 Mg Tab, 1 TAB PO TID 04/09/25 Cholecalciferol (VITAMIN D3) 2,000 Unit Tab, 1 TAB PO DAILY, #30 TAB 5 Refills 09/26/15 Atorvastatin Calcium (ATORVASTATIN CALCIUM) 40 Mg Tab, 1 TAB PO DAILY, #90 TAB 1 Refill 09/26/15 Aspirin (Aspir-Low) 81 Mg Tab, 81 MG PO DAILY for 30 Days, MG 09/26/15 Furosemide (Furosemide) 40 Mg Tab, 40 MG PO DAILY for 30 Days 09/26/15 Minoxidil (Loniten) 2.5 Mg Tb, 10 MG GT BID 09/26/15 Metoprolol Tartrate (Metoprolol Tartrate) 50 Mg Tab, 50 MG PO BID for 30 Days, MG 09/26/15 Cholecalciferol (VITAMIN D3) 2,000 Unit Chw, 2000 UNIT PO, CHW 09/25/15 Amlodipine Besylate (Amlodipine Besylate) 10 Mg Tab, 1 TAB PO DAILY, #30 TAB 5 Refills 09/25/15 Insulin Isophane & Reg (Human) (NOVOLIN 70/30 RELION) Relion Inj, 1 SC, INJ 09/25/15 Current Medications Current Medications Medications (Trade) Dose Ordered Sig/Neto Route PRN Reason Start Time Stop Time Status Last Admin Ondansetron HCl (Zofran) 4 mg Q4HP PRN IV NAUSEA / VOMITING 04/09/25 08:15 04/09/25 09:08 Acetaminophen (Tylenol Tablet) 650 mg Q6HP PRN PO PAIN SCALE 1-3 OR TEMP>100.4 04/09/25 08:15 Nitroglycerin (Ntrostat Sublingual) 0.4 mg Q5MINP PRN SL FOR CHEST PAIN 04/09/25 08:15 Morphine Sulfate 2 mg Q30M PRN IV FOR CHEST PAIN 04/09/25 08:15 Aspirin (Ecotrin Enteric Coated Tablet) 81 mg DAILY PO 04/09/25 10:00 04/09/25 09:07 Furosemide (Lasix Tablet) 40 mg DAILY PO 04/09/25 10:00 04/09/25 09:08 Metoprolol Tartrate (Lopressor Tablet) 50 mg BID PO 04/09/25 10:00 04/09/25 09:09 Minoxidil (Loniten Tablet) 10 mg BID GT 04/09/25 10:00 Amlodipine Besylate (Norvasc Tablet) 10 mg DAILY PO 04/09/25 10:00 04/09/25 09:21 Atorvastatin Calcium (Lipitor) 40 mg HS PO 04/09/25 22:00 Cholecalciferol (Vitamin D3 Tablet) 2,000 unit DAILY PO 04/09/25 10:00 04/09/25 09:20 Albuterol (Ventolin Medneb) 2.5 mg Q4HWA NEB 04/09/25 10:00 04/09/25 09:45 Ipratropium [place] (Atrovent Medneb) 0.5 mg Q4HWA NEB 04/09/25 10:00 04/09/25 09:45 Polyethylene Glycol (Miralax 17GM Powder) 17 gm DAILY PO 04/09/25 10:00 04/09/25 09:04 Sennosides (Senokot Tablet) 8.6 mg HS PO 04/09/25 22:00 Apixaban (Eliquis) 5 mg BID PO 04/09/25 10:00 04/09/25 09:08 Calcium Acetate (Phoslo Capsule) 667 mg TID PO 04/09/25 14:00 Carvedilol (Coreg Tablet) 12.5 mg BID PO 04/09/25 10:00 04/09/25 09:09 Gabapentin (Neurontin Capsule) 100 mg TID PO 04/09/25 14:00 Isosorbide Dinitrate (Isordil Tablet) 10 mg TID PO 04/09/25 14:00 Hydralazine HCl (Apresoline Tablet) 50 mg TID PO 04/09/25 08:42 04/09/25 09:07 Patient Own Medication 1 tab BID PO 04/09/25 10:00 Diagnostic Test (Pha) (Accu-Chek Comfort Curve T) 1 strip ACHS 04/09/25 11:30 04/09/25 11:30 Insulin Human Regular (InsuLIN R) ACHS SC 04/09/25 11:30 Dextrose 50 ml UD PRN IV Blood Sugar LESS THAN 60 04/09/25 08:15 Ceftriaxone Sodium 50 ml @ 100 mls/hr DAILY@09 IV 04/09/25 08:15 04/09/25 09:04 Review of Systems Constitutional: denies: chills, diaphoresis, fatigue, fever, malaise, sweats, weakness, others EENTM: denies: blurred vision, double vision, ear bleeding, ear discharge, ear drainage, ear pain, ear ringing, eye pain, eye redness, hearing loss, mouth pain, mouth swelling, nasal discharge, nose bleeding, nose congestion, nose pain, photophobia, tearing, throat pain, throat swelling, voice changes, others Respiratory: reports: SOB at rest, shortness of breath; denies: cough, hemoptysis, orthopnea, SOB with excertion, stridor, wheezing, others Cardiovascular: reports: chest pain, edema; denies: dizzy spells, diaphoresis, Dyspnea on exertion, irregular heart beat, left arm pain, lightheadedness, palpitations, PND, syncope, others Gastrointestinal: denies: abdomen distended, abdominal pain, blood streaked bowels, constipated, diarrhea, dysphagia, difficulty swallowing, hematemesis, melena, nausea, poor appetite, poor fluid intake, rectal bleeding, rectal pain, vomiting, others Genitourinary: denies: burning, dysuria, flank pain, frequency, hematuria, incontinence, penile discharge, penile sore, pain, testicle pain, testicle swelling, urgency, others Neurological: denies: dizziness, fainting, headache, left sided numbness, left sided weakness, numbness, paresthesia, pre-existing deficit, right sided numbness, right sided weakness, seizure, speech problems, tingling, tremors, weakness, others Musculoskeletal: denies: back pain, gout, joint pain, joint swelling, muscle pain, muscle stiffness, neck pain, others Integumetry: denies: bruises, change in color, change in hair/nails, dryness, laceration, lesions, lumps, rash, wounds, others Allergic/Immunocompromised: denies: Difficulty Healing, Frequent Infections, Hives, Itching, others Hematologic/Lymphatic: denies: anemia, blood clots, easy bleeding, easy bruising, swollen glands, others Endocrine: denies: excessive hunger, excessive sweating, excessive thirst, excessive urination, flushing, intolerance to cold, intolerance to heat, unexplained weight gain, unexplained weight loss, others Psychiatric: denies: anxiety, bipolar disorder, depression, hopeless, panic disorder, schizophrenia, sleepless, suicidal, others Vital Signs Vital Signs Date Time Temp Pulse Resp B/P (MAP) Pulse Ox O2 Delivery O2 Flow Rate FiO2 04/09/25 13:58 97 Nasal Cannula* 4 36 04/09/25 13:00 98.3 60 17 147/46 (79) 98.3 Physical Exam GENERAL: Alert and oriented x 3. No acute distress. EYES: PERRL, EOMI. Anicteric. HENT: Moist mucous membranes. LUNGS: Clear to auscultation bilaterally. CARDIOVASCULAR: Regular rate and rhythm. ABDOMEN: Soft, nontender and nondistended. EXTREMITIES: No edema. NEUROLOGIC: No focal neurological deficits. SKIN: Warm, dry. Labs/Diagnostic Data Labs Test 04/09/25 12:41 04/09/25 10:28 04/09/25 06:50 04/09/25 05:56 Range/Units POC Glucose 117 H 70-106 mg/dl Sodium Level 136 136-145 mmol/L Potassium Level 6.9 *H 3.5-5.1 mmol/L Chloride Level 101 98-107 mmol/L Carbon Dioxide Level 20 20-31 mmol/L Anion Gap 15 5-15 Blood Urea Nitrogen 81 #*H 9-23 mg/dL Creatinine 12.06 *H 0.700-1.30 mg/dL Glomerular Filtration Rate Calc 4 >90 mL/min BUN/Creatinine Ratio 6.7 L 10.0-20.0 Serum Glucose 159 H 74-106 mg/dL Calcium Level 9.2 8.7-10.4 mg/dL Troponin I High Sensitivity 626 *H </=54 ng/L Blood Gas Specimen Type Arterial Blood Gas Sample Site Right radial Blood Gas Patient Temperature 37.0 Arterial Blood Date Drawn [id number] Arterial Blood pH 7.394 7.350-7.450 Arterial Blood Partial Pressure CO2 31.6 L 35.0-48.0 mmHg Arterial Blood Partial Pressure O2 68.1 L 83.0-108.0 mmHg Arterial Blood HCO3 18.9 L 21.0-28.0 mmol/L Arterial Blood Oxygen Saturation 90.9 L 94.0-98.0 % Arterial Blood Base Excess -5.1 L -2.0-3.0 mmol/L Arterial Blood Oxyhemoglobin 90.3 L 94.0-98.0 % Arterial Blood Carboxyhemoglobin 0.3 L 0.5-1.5 % Arterial Blood Methemoglobin 0.4 0.0-1.5 % Sameer Test Yes Blood Gas Total Hemoglobin 11.50 L 13.5-17.5 g/dL Blood Gas Modality Mask - bipap FiO2 % 35.0 Blood Gas EPAP 5 Blood Gas IPAP 12 White Blood Count 9.3 4.4-10.8 10^3/uL Red Blood Count 3.36 L 4.5-5.90 10^6/uL Hemoglobin 11.3 L 13.5-17.5 g/dL Hematocrit 32.9 L 41.0-53.0 % Mean Corpuscular Volume 97.8 80.0-100.0 fL Mean Corpuscular Hemoglobin 33.6 H 28.0-32.0 pg Mean Corpuscular Hemoglobin Concent 34.3 32.0-36.0 g/dL Red Cell Distribution Width 16.1 H 11.8-14.3 % Platelet Count 165 140-450 10^3/uL Mean Platelet Volume 9.0 6.9-10.8 fL Neutrophils (%) (Auto) 70.2 37.0-80.0 % Lymphocytes (%) (Auto) 21.3 10.0-50.0 % Monocytes (%) (Auto) 6.7 0.0-12.0 % Eosinophils (%) (Auto) 1.2 0.0-7.0 % Basophils (%) (Auto) 0.6 0.0-2.0 % Neutrophils # (Auto) 6.5 1.6-8.6 10 ^3/uL Lymphocytes # (Auto) 2.0 0.4-5.4 10 ^3/uL Monocytes # (Auto) 0.6 0-1.3 10 ^3/uL Eosinophils # (Auto) 0.1 0-0.8 10 ^3/uL Basophils # (Auto) 0.1 0-0.2 10 ^3/uL Nucleated Red Blood Cells 0.1 % Prothrombin Time 10.7 9.3-11.8 sec Prothrombin Time INR 1.01 0.9-1.15 Activated Partial Thromboplast Time 31.0 24.5-34.5 SEC Hemoglobin A1c 8.0 H <5.7 % A1C Total Bilirubin 0.4 0.2-1.0 mg/dL Aspartate Amino Transferase (AST) 15 13-40 U/L Alanine Aminotransferase (ALT) 10 7-40 U/L Alkaline Phosphatase 215 H 46-116 U/L B-Type Natriuretic Peptide 2433.71 0-100 pg/mL Total Protein 8.2 5.7-8.2 g/dL Albumin 4.3 3.2-4.8 g/dL Assessment Acute hypoxic respiratory failure. Acute on chronic CHF exacerbation. Pulmonary edema. Constipation. Chronic Anemia of chronic kidney disease. End-stage renal disease. Morbid obesity. Hypertension. Type 2 diabetes. Hypertension. Low back pain. Hyperkalemia. NSTEMI type 2 due to fluid retention and hypoxia. Plan/Recommendation I agree with your ongoing assessment and care of plan. Telemetry reviewed. Morphine and [place] for pain. Amlodipine, Coreg. Eliquis. Aspirin, Lipitor, Metoprolol. IV antibiotics as ordered. Diuretics with Lasix. IV Hydralazine for SBP >150. Additional plan as per the hospital course. A total of 45 minutes was spent reviewing the patient record, examining the patient, making a diagnostic and therapeutic plan, discussing this plan with medical personnel, following up on diagnostic studies and following the patient for clinical stability excluding any and all procedures. At least 50% of this time was spent in direct, [id number] contact. Plan discussed with: Patient YIFAN BAKER MD April 09, 2025 15:12
[2025-04-10] VITALS (8 sets, daily range): BP systolic 114–127; BP diastolic 41–74; PULSE 59–64; RESP 18–20; TEMP 36.3; O2SAT 95–100
[2025-04-10] MEDS ORDERED: ALBUTEROL SULF 2.5 MG/0.5ML(0.5%) NEB SOLN NEB PRN (00:45)
[2025-04-10] MEDS ORDERED: IPRATROPIUM BROM 0.5 MG/2.5ML INH SOL NEB PRN (00:45)
[2025-04-10 07:31] LABS: Basophils # (auto) 0 10 ^3/uL (0-0.2); Basophils % (auto) 0.3 % (0.0-2.0); Eosinophils # (auto) 0.1 10 ^3/uL (0-0.8); Eosinophils % (auto) 1.7 % (0.0-7.0); Hematocrit 29.3 % (41.0-53.0); Hemoglobin 9.9 g/dL (13.5-17.5); Lymphocytes # (auto) 1.3 10 ^3/uL (0.4-5.4); Lymphocytes % (auto) 28.2 % (10.0-50.0); Mean Corpuscular Hemoglobin 33.3 pg (28.0-32.0); Mean Corpuscular Hgb Conc. 33.8 g/dL (32.0-36.0); Mean Corpuscular Volume 98.7 fL (80.0-100.0); Monocytes # (auto) 0.4 10 ^3/uL (0-1.3); Monocytes % (auto) 9.8 % (0.0-12.0); Neutrophils # (auto) 2.8 10 ^3/uL (1.6-8.6); Nucleated Red Blood Cells % 0.2 %; Platelet Count (auto) 126 10^3/uL (140-450); Red Blood Cells 2.97 10^6/uL (4.5-5.90); Red Cell Distribution Width 16.3 % (11.8-14.3); White Blood Cell 4.6 10^3/uL (4.4-10.8)
[2025-04-10 07:45] LABS: Albumin 3.8 g/dL (3.2-4.8); Anion Gap 12 (5-15); BUN/Creatinine Ratio 5.5 (10.0-20.0); Calcium 8.8 mg/dL (8.7-10.4); Carbon Dioxide 28 mmol/L (20-31); Sodium 138 mmol/L (136-145)
[2025-04-10 07:46] LABS: Bilirubin, Total 0.7 mg/dL (0.2-1.0)
[2025-04-10 07:50] LABS: Blood Urea Nitrogen 56 mg/dL (9-23); Chloride 98 mmol/L (98-107); Glucose 126 mg/dL (74-106); Potassium 5.2 mmol/L (3.5-5.1)
[2025-04-10 07:51] LABS: Alanine Aminotransferase < 9 U/L (7-40); Alkaline Phosphatase 123 U/L (46-116); Aspartate Aminotransferase 9 U/L (13-40)
[2025-04-10] MEDS: EPOETIN ALFA-EPBX 4,000 UNIT/ML VIAL IV ONE (12:36)
[2025-04-10] MEDS: SODIUM CHL 0.9% 1000 ML BAG XX ONE (12:36)
--- NOTE | 2025-04-10 13:56 | DVHPN2 ---
Progress Note Date Seen: April 10, 2025 Medical Necessity Reason Pt with a Central, PICC or Fol: No Subjective Patient reports: Feels better Review of Systems: Deferred Objective vital signs Vital Sign Date Time Temp Pulse Resp B/P (MAP) Pulse Ox O2 Delivery O2 Flow Rate FiO2 04/10/25 11:40 96 Nasal Cannula 4.0 04/10/25 11:40 36 04/10/25 09:00 97.3 62 20 125/42 (69) 97.3 Total Intake and Output 04/09/25 04/09/25 04/10/25 15:00 23:00 07:00 Intake Total 150 ml 200 ml Balance 150 ml 200 ml medications Current Medications Medications Dose Ordered Sig/Neto Route Start Time Stop Time Status Last Admin Dose Admin Ondansetron HCl 4 mg Q4HP PRN IV 04/09/25 08:15 04/09/25 09:08 4 MG Acetaminophen 650 mg Q6HP PRN PO 04/09/25 08:15 Nitroglycerin 0.4 mg Q5MINP PRN SL 04/09/25 08:15 Morphine Sulfate 2 mg Q30M PRN IV 04/09/25 08:15 Aspirin 81 mg DAILY PO 04/09/25 10:00 04/09/25 09:07 81 MG Furosemide 40 mg DAILY PO 04/09/25 10:00 04/09/25 09:08 40 MG Metoprolol Tartrate 50 mg BID PO 04/09/25 10:00 04/09/25 09:09 50 MG Minoxidil 10 mg BID GT 04/09/25 10:00 Amlodipine Besylate 10 mg DAILY PO 04/09/25 10:00 04/09/25 09:21 10 MG Atorvastatin Calcium 40 mg HS PO 04/09/25 22:00 04/09/25 22:04 40 MG Cholecalciferol 2,000 unit DAILY PO 04/09/25 10:00 04/09/25 09:20 2,000 UNIT Polyethylene Glycol 17 gm DAILY PO 04/09/25 10:00 04/09/25 09:04 17 GM Sennosides 8.6 mg HS PO 04/09/25 22:00 Apixaban 5 mg BID PO 04/09/25 10:00 04/09/25 22:05 5 MG Calcium Acetate 667 mg TID PO 04/09/25 14:00 Carvedilol 12.5 mg BID PO 04/09/25 10:00 04/09/25 09:09 12.5 MG Gabapentin 100 mg TID PO 04/09/25 14:00 04/10/25 05:26 100 MG Isosorbide Dinitrate 10 mg TID PO 04/09/25 14:00 Hydralazine HCl 50 mg TID PO 04/09/25 08:42 04/09/25 09:07 50 MG Patient Own Medication 1 tab BID PO 04/09/25 10:00 Diagnostic Test (Pha) 1 strip ACHS 04/09/25 11:30 04/10/25 06:39 1 STRIP Insulin Human Regular ACHS SC 04/09/25 11:30 Dextrose 50 ml UD PRN IV 04/09/25 08:15 Ceftriaxone Sodium 50 ml @ 100 mls/hr DAILY@09 IV 04/09/25 08:15 04/09/25 09:04 100 MLS/HR Acetaminophen/ Hydrocodone Bitart 1 tab Q6HPRN PRN PO 04/09/25 15:30 04/10/25 01:14 1 TAB Albuterol 2.5 mg Q4HP PRN NEB 04/10/25 00:45 Ipratropium [place] 0.5 mg Q4HPRN PRN NEB 04/10/25 00:45 laboratory and microbiology Laboratory Tests 04/10/25 06:28 Test 04/10/25 06:28 Range/Units Serum Glucose 126 H 74-106 mg/dL Problem List/Assessment/Plan Problem List/Assessment/Plan ESRD on dialysis Hyperkalemia missed dialysis Acute hypoxic respiratory failure Recommendations repeat HD today next HD friday if still here or else resume outpt HD Plan discussed with: Patient My Orders My Orders Orders - LUCILA MENDEZ MD Procedure Category Date Status Time Hemodialysis Orders ORDERS 04/10/25 Transmitted 09:09 Dialysis Nursing INOCENCIA 04/10/25 In Process Message 09:09 Document Fluid Input INOCENCIA 04/10/25 In Process And Outpu 09:09 LUCILA MENDEZ MD April 10, 2025 13:56
--- NOTE | 2025-04-10 14:21 | DVHDS2 ---
Discharge Summary Date of Admission April 09, 2025 at 08:05 Date of Discharge: April 10, 2025 Labs/Diagnostic Data: Laboratory Results Test 04/10/25 06:41 04/10/25 06:28 04/09/25 10:28 04/09/25 06:50 POC Glucose 118 mg/dl (70-106) White Blood Count 4.6 10^3/uL (4.4-10.8) Red Blood Count 2.97 10^6/uL (4.5-5.90) Hemoglobin 9.9 g/dL (13.5-17.5) Hematocrit 29.3 % (41.0-53.0) Mean Corpuscular Volume 98.7 fL (80.0-100.0) Mean Corpuscular Hemoglobin 33.3 pg (28.0-32.0) Mean Corpuscular Hemoglobin Concent 33.8 g/dL (32.0-36.0) Red Cell Distribution Width 16.3 % (11.8-14.3) Platelet Count 126 10^3/uL (140-450) Mean Platelet Volume 9.0 fL (6.9-10.8) Neutrophils (%) (Auto) 60.0 % (37.0-80.0) Lymphocytes (%) (Auto) 28.2 % (10.0-50.0) Monocytes (%) (Auto) 9.8 % (0.0-12.0) Eosinophils (%) (Auto) 1.7 % (0.0-7.0) Basophils (%) (Auto) 0.3 % (0.0-2.0) Neutrophils # (Auto) 2.8 10 ^3/uL (1.6-8.6) Lymphocytes # (Auto) 1.3 10 ^3/uL (0.4-5.4) Monocytes # (Auto) 0.4 10 ^3/uL (0-1.3) Eosinophils # (Auto) 0.1 10 ^3/uL (0-0.8) Basophils # (Auto) 0 10 ^3/uL (0-0.2) Nucleated Red Blood Cells 0.2 % Sodium Level 138 mmol/L (136-145) Potassium Level 5.2 mmol/L (3.5-5.1) Chloride Level 98 mmol/L (98-107) Carbon Dioxide Level 28 mmol/L (20-31) Anion Gap 12 (5-15) Blood Urea Nitrogen 56 mg/dL (9-23) Creatinine 10.21 mg/dL (0.700-1.30) Glomerular Filtration Rate Calc 5 mL/min (>90) BUN/Creatinine Ratio 5.5 (10.0-20.0) Serum Glucose 126 mg/dL (74-106) Calcium Level 8.8 mg/dL (8.7-10.4) Total Bilirubin 0.7 mg/dL (0.2-1.0) Aspartate Amino Transferase (AST) 9 U/L (13-40) Alanine Aminotransferase (ALT) < 9 U/L (7-40) Alkaline Phosphatase 123 U/L (46-116) Total Protein 7.0 g/dL (5.7-8.2) Albumin 3.8 g/dL (3.2-4.8) Troponin I High Sensitivity 626 ng/L (</=54) Blood Gas Specimen Type Arterial Blood Gas Sample Site Right radial Blood Gas Patient Temperature 37.0 Arterial Blood Date Drawn [id number] Arterial Blood pH 7.394 (7.350-7.450) Arterial Blood Partial Pressure CO2 31.6 mmHg (35.0-48.0) Arterial Blood Partial Pressure O2 68.1 mmHg (83.0-108.0) Arterial Blood HCO3 18.9 mmol/L (21.0-28.0) Arterial Blood Oxygen Saturation 90.9 % (94.0-98.0) Arterial Blood Base Excess -5.1 mmol/L (-2.0-3.0) Arterial Blood Oxyhemoglobin 90.3 % (94.0-98.0) Arterial Blood Carboxyhemoglobin 0.3 % (0.5-1.5) Arterial Blood Methemoglobin 0.4 % (0.0-1.5) Sameer Test Yes Blood Gas Total Hemoglobin 11.50 g/dL (13.5-17.5) Blood Gas Modality Mask - bipap FiO2 % 35.0 Blood Gas EPAP 5 Blood Gas IPAP 12 Test 04/09/25 05:56 Prothrombin Time 10.7 sec (9.3-11.8) Prothrombin Time INR 1.01 (0.9-1.15) Activated Partial Thromboplast Time 31.0 SEC (24.5-34.5) Hemoglobin A1c 8.0 % A1C (<5.7) B-Type Natriuretic Peptide 2433.71 pg/mL (0-100) Other Laboratory Tests 04/10/25 06:28 Brief Hx & Hospital Course: Final diagnoses: Acute hypoxic respiratory failure Acute on chronic CHF exacerbation Pulmonary edema Constipation Chronic Anemia of chronic kidney disease End-stage renal disease Morbid obesity Hypertension Type 2 diabetes Hypertension Low back pain Hyperkalemia NSTEMI type 2 due to fluid retention and hypoxia 59-year-old male with a history of end-stage renal disease on hemodialysis, hypertension, type 2 diabetes, congestive heart failure comes here with a chief complaint of back pain He had pain for 2 days located in the lower back on both sides He was also found to have fluid overload because he missed his dialysis His potassium was elevated at 6.9 He just had a dialysis this morning and we are waiting for a repeat potassium level now His BNP was 2433 He was dialyzed twice yesterday and today and he says he feels better His back pain was evaluated with a CT scan of the lumbar spine which showed no significant findings except for a disc bulging at the level of the L3-L4 The patient also was constipated and he feels better now He was getting dialysis this morning and would like to go home after that Discharged home later today Follow up with dialysis as scheduled Follow up with his primary care physician as soon as possible Resume the home medications Condition at Discharge: Stable Final Diagnosis/Problems List Acute hypoxic respiratory failure Acute on chronic CHF exacerbation Pulmonary edema Constipation Chronic Anemia of chronic kidney disease End-stage renal disease Morbid obesity Hypertension Type 2 diabetes Hypertension Low back pain Hyperkalemia NSTEMI type 2 due to fluid retention and hypoxia Discharge Disposition: Home SNF Discharge Will this Physician continue t: No Discharge Instruct/Medications Diet: Consistent carbohydrate, Cardiac 2g Na,low cholest, Renal Activity: No Restrictions, As Tolerated Follow Up/Referral: Follow up with dialysis on 04/12/2025 Medications: Same home medications Discharge Statement: "Patient was advised to return to the ER or call 911 if any headaches, dizziness, shortness of breath, chest pain, abdominal pain, bleeding, fevers, or worsening of medical condition. Patient was counseled about treatment plan, medications, possible side effects, patientverbalized understanding. All questions were answered to the best of my ability. This discharge took greater then 30 minutes in planning, reviewing documentation, counseling the patient, and discussing with other team members." ASSESSMENT ASSESSMENT Assessment Acute hypoxic respiratory failure Acute on chronic CHF exacerbation Pulmonary edema Constipation Chronic Anemia of chronic kidney disease End-stage renal disease Morbid obesity Hypertension Type 2 diabetes Hypertension Low back pain Hyperkalemia NSTEMI type 2 due to fluid retention and hypoxia Date of Service: April 10, 2025 Billing Provider: PAULO RADFORD MD Common Visit Codes: NOT BILLABLE PAULO RADFORD MD April 10, 2025 14:20
--- NOTE | 2025-04-10 22:50 | DVHPN2 ---
Progress Note - Dictate Date Seen: April 10, 2025 Medical Necessity Reason Pt with a Central, PICC or Fol: No Subjective Patient was seen and evaluated in follow up. Patient is on 4 LPM NC. She c/o SOB. Denies any chest pain. HGB 9.9, HCT 29.3, K 5.2, BUN 56, [place] 10.21. Echo shows an EF of 25%. Telemetry reviewed. vital signs Vital Sign Date Time Temp Pulse Resp B/P (MAP) Pulse Ox O2 Delivery O2 Flow Rate FiO2 04/10/25 11:40 96 Nasal Cannula 4.0 04/10/25 11:40 36 04/10/25 09:00 97.3 62 20 125/42 (69) 97.3 Total Intake and Output 04/09/25 04/09/25 04/10/25 15:00 23:00 07:00 Intake Total 150 ml 200 ml Balance 150 ml 200 ml medications Current Medications Medications Dose Ordered Sig/Neto Route Start Time Stop Time Status Last Admin Dose Admin Ondansetron HCl 4 mg Q4HP PRN IV 04/09/25 08:15 04/09/25 09:08 4 MG Acetaminophen 650 mg Q6HP PRN PO 04/09/25 08:15 Nitroglycerin 0.4 mg Q5MINP PRN SL 04/09/25 08:15 Morphine Sulfate 2 mg Q30M PRN IV 04/09/25 08:15 Aspirin 81 mg DAILY PO 04/09/25 10:00 04/09/25 09:07 81 MG Furosemide 40 mg DAILY PO 04/09/25 10:00 04/09/25 09:08 40 MG Metoprolol Tartrate 50 mg BID PO 04/09/25 10:00 04/09/25 09:09 50 MG Minoxidil 10 mg BID GT 04/09/25 10:00 Amlodipine Besylate 10 mg DAILY PO 04/09/25 10:00 04/09/25 09:21 10 MG Atorvastatin Calcium 40 mg HS PO 04/09/25 22:00 04/09/25 22:04 40 MG Cholecalciferol 2,000 unit DAILY PO 04/09/25 10:00 04/09/25 09:20 2,000 UNIT Polyethylene Glycol 17 gm DAILY PO 04/09/25 10:00 04/09/25 09:04 17 GM Sennosides 8.6 mg HS PO 04/09/25 22:00 Apixaban 5 mg BID PO 04/09/25 10:00 04/09/25 22:05 5 MG Calcium Acetate 667 mg TID PO 04/09/25 14:00 Carvedilol 12.5 mg BID PO 04/09/25 10:00 04/09/25 09:09 12.5 MG Gabapentin 100 mg TID PO 04/09/25 14:00 04/10/25 05:26 100 MG Isosorbide Dinitrate 10 mg TID PO 04/09/25 14:00 Hydralazine HCl 50 mg TID PO 04/09/25 08:42 04/09/25 09:07 50 MG Patient Own Medication 1 tab BID PO 04/09/25 10:00 Diagnostic Test (Pha) 1 strip ACHS 04/09/25 11:30 04/10/25 06:39 1 STRIP Insulin Human Regular ACHS SC 04/09/25 11:30 Dextrose 50 ml UD PRN IV 04/09/25 08:15 Ceftriaxone Sodium 50 ml @ 100 mls/hr DAILY@09 IV 04/09/25 08:15 04/09/25 09:04 100 MLS/HR Acetaminophen/ Hydrocodone Bitart 1 tab Q6HPRN PRN PO 04/09/25 15:30 04/10/25 01:14 1 TAB Albuterol 2.5 mg Q4HP PRN NEB 04/10/25 00:45 Ipratropium [place] 0.5 mg Q4HPRN PRN NEB 04/10/25 00:45 objective GENERAL: Alert and oriented x 3. No acute distress. EYES: PERRL, EOMI. Anicteric. HENT: Moist mucous membranes. LUNGS: Clear to auscultation bilaterally. CARDIOVASCULAR: Regular rate and rhythm. ABDOMEN: Soft, nontender and nondistended. EXTREMITIES: No edema. NEUROLOGIC: No focal neurological deficits. SKIN: Warm, dry. laboratory and microbiology Laboratory Tests 04/10/25 06:28 Test 04/10/25 06:28 Range/Units Serum Glucose 126 H 74-106 mg/dL Problem List Acute hypoxic respiratory failure. Acute on chronic CHF exacerbation. Pulmonary edema. Constipation. Chronic Anemia of chronic kidney disease. End-stage renal disease. Morbid obesity. Hypertension. Type 2 diabetes. Hypertension. Low back pain. Hyperkalemia. NSTEMI type 2 due to fluid retention and hypoxia. Assessment/Plan Continued all current supportive medical care. Morphine and [place] for pain. Amlodipine, Coreg. Eliquis. Aspirin, Lipitor, Metoprolol. IV antibiotics as ordered. Diuretics with Lasix. IV Hydralazine for SBP >150. Additional plan as per the hospital course. Plan discussed with: Patient YIFAN BAKER MD April 10, 2025 13:38
== END 2025-04-10 17:00 | disposition home or self-care (01) | DRG 280 ==
LOC: ER 05:15 → EDBD 05:15 → EDUNIT# 05:15 → OVERFLOW 08:05 → TELE-WESTW 11:40
PROC: 5A09357 Assistance with Respiratory Ventilation, Less than 24 Consecutive Hours, Continuous Positive Airway Pressure (ICD-10-PCS; principal; 2025-04-09)
DX: I13.2 Hypertensive heart and chronic kidney disease with heart failure and with stage 5 chronic kidney disease, or end stage renal disease (principal); I50.43 Acute on chronic combined systolic (congestive) and diastolic (congestive) heart failure; I21.A1 Myocardial infarction type 2; J96.01 Acute respiratory failure with hypoxia; N18.6 End stage renal disease; Z68.43 Body mass index [BMI] 50.0-59.9, adult; D63.1 Anemia in chronic kidney disease; E66.01 Morbid (severe) obesity due to excess calories; E87.5 Hyperkalemia; E78.5 Hyperlipidemia, unspecified; H54.61 Unqualified visual loss, right eye, normal vision left eye; E11.22 Type 2 diabetes mellitus with diabetic chronic kidney disease; M54.50 Low back pain, unspecified; K80.20 Calculus of gallbladder without cholecystitis without obstruction; K59.00 Constipation, unspecified; Z79.82 Long term (current) use of aspirin; Z79.899 Other long term (current) drug therapy; Z79.4 Long term (current) use of insulin; Z83.3 Family history of diabetes mellitus; Z89.511 Acquired absence of right leg below knee; Z89.422 Acquired absence of other left toe(s); Z79.01 Long term (current) use of anticoagulants; Z99.2 Dependence on renal dialysis
CPT/HCPCS: 36415; 36600; 71045; 72131; 74018; 80048; 80053; 82805; 82962; 83036; 83880; 84484; 85025; 85610; 85730; 87340; 90935; 93005; 93306; 94640; 94660; 96374; 96375; 99291; G0378; J2405